=== PATIENT | female | born 1970 | race Caucasian/White ===

== ENCOUNTER 2024-01-14 16:42 | Emergency (ER) | payer SELFPAY ==
[2024-01-14 16:45] VITALS: BP 108/81
--- NOTE | 2024-01-14 17:13 | ED.GENMED ---
History of Present Illness
General
Chief Complaint: Blood Pressure Problem
Source: patient
Exam Limitations: none
Time Seen by Provider: 01/14/24 16:50
Nursing documentation reviewed up to this point in time: agreed with
Travel History
Have you had any contact with someone who has COVID-19?: No
Do you have any symptoms of coronavirus? Fever > 100 degrees, chills, cough, shortness of breath, sore throat, loss of taste or smell, muscle aches, or headache?: No
History of Present Illness
History of Present Illness:
The patient is a 53-year-old female who arrives here with police for medical clearance for incarceration. Patient reports that she was concerned because her blood pressure was elevated at home. Patient also reports a mild headache but denies
vision changes, chest pain and shortness of breath. Patient appears comfortable and well. Blood pressure in the normal range in the ED
Past History
Past History
ED Past Medical History: HTN
ED Past Surgical History: Gynecological
Social History
Tobacco: Smoker
Alcohol: Occasional
Drug: None
Personal: Other
Living: other
Employment: Other
Family History
Family History: Other
Review of Systems
Review of Systems
Allergies reviewed?: Yes
All Other Systems: ROS reviewed and negative except as documented in HPI and ROS
Constitutional: Reports no symptoms
EENT: Reports no symptoms
Respiratory: Reports no symptoms
Cardiac: Reports no symptoms
ABD/GI: Reports no symptoms
: Reports no symptoms
Musculoskeletal: Reports no symptoms
Skin: Reports no symptoms
Neurological: Reports headache; Denies dizzy
Endocrine: Reports no symptoms
Hematologic/Lymphatic: Reports no symptoms
Psychiatric: Reports no symptoms
Phy Exam
Physical Exam
Physical Exam:
Physical Exam
General: no apparent distress, not acutely ill. Well and comfortable appearing
Neck: supple. no meningeal signs. normal psoterior pharynx
Heart: s1/s2 regular rate and rhythm, no murmur. equal radial pulses.
Lungs: no acute respiratory distress. clear bilaterally
Abdomen: normal bowel sounds. not tender. no CVAT
Neuro: alert and orientedx3. no focal neurological deficits. 5 out of 5 strength in all extremities. Cranial nerves equal and symmetric bilaterally. Extraocular muscles intact.
Skin: no rash
Psychiatric: well kept. interactive and cooperative
Extremities: no edema. no calf tenderness. negative homans. good distal pulses
Course
Orders/Labs/Results
Orders:
Orders
01/14/24 17:13
Acetaminophen [Tylenol] 1,000 mg PO NOW STA
Vital Signs
Initial and Last Documented VS:
Initial Vital Signs
Temp Pulse Resp BP Pulse Ox
98.2 F 62 18 108/81 100
01/14/24 16:45 01/14/24 16:45 01/14/24 16:45 01/14/24 16:45 01/14/24 16:45
Last Documented Vital Signs
Temp Pulse Resp BP Pulse Ox
98.2 F 62 18 108/81 100
01/14/24 16:45 01/14/24 16:45 01/14/24 16:45 01/14/24 16:45 01/14/24 16:45
MDM/Problems Addressed
Differential Diagnosis Includes:
Acute hypertension, hypertensive urgency, hypertensive emergency, tension headache
MDM/Problems Addressed:
Patient presents with reported high blood pressure at home and a mild headache
Chronic conditions affecting care: HTN
Acute Exacerbation and/or Progression of Chronic Illness: HTN
*Pulse Oximetry
Patient hypoxic: no
*EKG
Interpreted by ED Provider?: NA
*Ciaio Counter Molder Interpretation
Rate: Ciaio Counter Molder- N/A
*Critical Care Note
Total Time (30-74mins, 75-104mins- exclusive of procedures): Not Applicable
Data Reviewed
Source: patient
Patient Management
Escalation/DeEscalation of care consider admission/obs:
Patient appears very well and comfortable. She had normal blood pressure in the ED. She has minimal complaints other than a mild headache. She denies any chest pain or shortness of breath and her lungs are completely clear. She has no sign of
leg edema to suggest heart failure or renal failure. She is smiling and conversational. She has a normal neurological exam. Given her blood pressure and vital signs are normal and she looks so well and comfortable, I do not think we need to do
emergent blood work.
ED Attending Note
-
Portions of this chart may have been created with voice recognition software.� Occasional wrong word or��sound alike� substitutions may have occurred due to the inherent limitations of voice recognition software.
Discharge Plan
Departure
Patient Disposition: Home (Routine Discharge)
Date of Disposition: 01/14/24
Time of Disposition: 17:20
Patient with high blood pressure during this ER visit?: No
Condition: Good
Covid-19: Not Applicable
Discharge Problem:
Medical clearance for incarceration
Instructions: Headache, Adult ED
Activity Restrictions/Additional Instructions:
Patient is cleared for incarceration.
Patient has a normal blood pressure in the emergency department and looks well. Patient reports that she does have a history of high blood pressure and has been off her medications. Therefore, it is important that her blood pressure is checked
within 48 hours and at least once a week to monitor for any hypertension.
Interventions
Interventions:
*Risk Screen - Suicide Last Done: 01/14/24 16:45
*General Assessment Last Done: 01/14/24 16:45
*Neglect/Abuse Screening Last Done: 01/14/24 16:45
ED- Fall Risk Assessment Last Done: 01/14/24 17:53
*ED COVID-19 Vaccine History Last Done: 01/14/24 16:45
*Nursing Disposition Last Done: 01/14/24 17:53
ED- Cardiac Assessment Last Done: 01/14/24 17:52
ED- Neurological Assessment Last Done: 01/14/24 17:52
ED- Pulmonary Assessment Last Done: 01/14/24 17:52
Discharge Date and Time
Discharge Date/Time: 01/14/24 17:53
Print Language: GREEK
[2024-01-14] MEDS: TYLENOL 1000 MG PO (17:21)
== END 2024-01-14 17:53 | disposition home or self-care (01) ==
LOC: EMR 16:42
PROVIDERS: EMERGENCY PHYSICIAN Emergency Medicine
DX: Z02.89 Encounter for other administrative examinations (principal); R51.9 Headache, unspecified; I10 Essential (primary) hypertension; Z65.3 Problems related to other legal circumstances; F17.200 Nicotine dependence, unspecified, uncomplicated
CPT/HCPCS: 99283

== ENCOUNTER 2024-03-18 17:47 | Inpatient (IN) | payer OTHER, SELFPAY ==
[2024-03-18] VITALS (12 sets, daily range): BP systolic 108–161; BP diastolic 66–107; PULSE 82–103; BMI 23.4
[2024-03-18 11:55] LABS: % Basophils 0.8 % (0-2); % Eosinophils 0.7 % (0-6); % Immature Granulocytes 0.4 % (0-0.5); % Lymphocytes 13.2 % (20.5-51.1); % Monocytes 5.7 % (1.7-9.3); % Neutrophils 79.2 % (42.2-75.2); Absolute Basophils 0.1 10^3/uL (0-0.2); Absolute Eosinophils 0.1 10^3/uL (0-0.7); Absolute Monocytes 0.4 10^3/uL (0.1-0.6); Absolute Neutrophils 5.9 10^3/uL (1.4-6.5); Hematocrit 44.1 % (37.0-47.0); Hemoglobin 15.3 g/dL (12.0-16.0); Mean Corp Hgb Conc. 34.7 g/dL (33.0-37.0); Mean Corpuscular Hgb 30.8 pg (27.0-31.0); Mean Corpuscular Volume 88.7 fL (81.0-99.0); Mean Platelet Volume 10.9 fL (7.4-10.4); Nucleated Red Blood Cells % 0 %; Platelet Count 316 10^3/uL (130-400); Red Blood Cell Count 4.97 10^6/uL (4.20-5.40); Red Cell Dist. Width 13.2 % (11.5-14.5); White Blood Cell Count 7.5 10^3/uL (4.8-10.8)
--- NOTE | 2024-03-18 11:59 | ED.GENMED ---
History of Present Illness
General
Chief Complaint: Fainting/Passed Out
Source: patient
Exam Limitations: none
Time Seen by Provider: 03/18/24 11:37
Nursing documentation reviewed up to this point in time: agreed with
History of Present Illness
History of Present Illness:
Patient presents to ED from [facility] secondary to multiple episodes of syncope this morning. Patient states that she felt 'woozy', prior to passing out. Event lasted less than a minute. Patient states that she has been
in care home for the past 5 days. During that time, patient has felt 'weak', and has not been able to go to cafeteria to eat. Denies fever or chills. Denies headache. Denies blurred vision. No loss of sensation or weakness. Denies recent episodes
of nausea, vomiting, or diarrhea.
Past History
Past History
ED Past Medical History: HTN
ED Past Surgical History: Gynecological
Social History
Tobacco: Smoker
Alcohol: Occasional
Drug: None
Personal: Other
Living: other
Employment: Other
Family History
Family History: Other
Review of Systems
Review of Systems
Allergies reviewed?: Yes
All Other Systems: ROS reviewed and negative except as documented in HPI and ROS
Constitutional: Reports no symptoms
EENT: Reports no symptoms
Respiratory: Reports no symptoms
Cardiac: Reports syncope
ABD/GI: Reports no symptoms
: Reports no symptoms
Musculoskeletal: Reports no symptoms
Skin: Reports no symptoms
Neurological: Reports no symptoms
Phy Exam
Physical Exam
Physical Exam:
Physical Exam
General: no apparent distress, not acutely ill. afebrile
Head: nc/at. eomi
Neck: supple. no meningeal signs.
Heart: s1/s2 regular rate and rhythm, no murmur. equal radial pulses.
Lungs: no acute respiratory distress. clear bilaterally
Abdomen: normal bowel sounds. not tender.
Neuro: alert and oriented. no focal neurological deficits
Skin: no rash
Psychiatric: well kept. interactive and cooperative
Extremities: no edema. no calf tenderness.
Course
Orders/Labs/Results
Orders:
Orders
03/18/24 11:34
Electrocardiogram (*1) Urgent
Reason for Study: Chest Pain
Cardiac Monitoring- Treatment ONCE
EKG- Treatment ONCE
IV Insert/Care/Rem.- Treatment PRN
O2 Therapy [RESP] Urgent
Titrate/Wean O2 to maintain O2 sat greater than (%): 90
Special Instructions: Maintain sats >/=90%
Pulse Ox/spot Check [RESP] Urgent
Quantity: 1
Special Instructions: ON ROOM AIR
03/18/24 11:43
B-Hydroxybutyrate Urgent
Comment: ADD ON
Complete Blood Count/With Diff Urgent
Comprehensive Metabolic Panel Urgent
Glycohemoglobin (HgbA1c) Urgent
03/18/24 12:01
Add On- LAB Urgent
Tests Added?: TSH to reflex free T4, magnesium
03/18/24 12:16
Add On- LAB Urgent
Tests Added?: hemoglobin A1C, CPK
03/18/24 12:31
Add On- LAB Urgent
Tests Added?: Beta hydroxybutyrate
03/18/24 14:42
EKG [Electrocardiogram (*1)] Urgent
Reason for Study: Other
Other Reason for Exam: Rhythm change
03/18/24 14:43
EKG- Treatment ONCE
03/18/24 14:48
Troponin I Urgent
03/18/24 15:45
0.9% Sodium Chloride 1000 ml [Nss] 1,000 ml IV 100 mls/hr
03/18/24 16:47
CT Head W/o Iv Contrast Urgent
Comment:
Reason For Exam: syncope, meth use
03/18/24 17:04
Admit/Transfer Patient As Directed
Co-Sign Provider:
Level of Care: Inpatient admission
Assign to:: Telemetry
Physician / Group: Trever Garcia
Diagnosis: Syncope due to unknown etiology
Reason for Telemetry: Syncope
Date to Stop Telemetry: 03/20/24
Time to Stop Telemetry: 11:00
Reason for Hospitalization: Evaluate Syncope
Expected length of stay greater than two midnights?: Yes
ELOS- Estimated Length of Stay in days: 2
I certify the patient meets the requirements for IP care: Yes
Reason for Overnight Stay: Standard of Care
PRN Pain Medication Management As Directed
May give lesser potent ordered pain med per pt: Yes
preference::
Protocol:: Medication orders for pain may be administered in a
manner that supports deferring to patient preference
when the pt is:
- Requesting an ordered lesser potent pain medication.
Least to most potent pain medications are defined
as: acetaminophen < NSAID < tramadol < opioids
(morphine, oxycodone, hydromorphone).
- Requesting a lesser dose of the same medication IF
ORDERED.
- Requesting a less intrusive route of administration
if both routes are prescribed by the provider (PO <
IV).
03/18/24 18:00
Amlodipine [Norvasc] 5 mg PO DAILY
03/20/24 11:00
DC Protocol for Telemetry ONCE
Abnormal Lab Results
03/18/24
11:43
MPV 10.9 H fL
(7.4-10.4)
Absolute Lymphs (auto) 1.0 L 10^3/uL
(1.2-3.4)
Neutrophils % 79.2 H %
(42.2-75.2)
Lymphocytes % 13.2 L %
(20.5-51.1)
Sodium 129 L mmol/L
(135-145)
Chloride 96 L mmol/L
(98-107)
Carbon Dioxide 19 L mmol/L
(22-30)
BUN 34 H mg/dl
(7-17)
Creatinine 1.2 H mg/dL
(0.6-1.0)
Glucose 257 H mg/dl
(70-99)
B-Hydroxybutyrate 2.32 H mmol/L
(0.02-0.27)
03/18/24 11:43
03/18/24 11:43
Vital Signs
Initial and Last Documented VS:
Initial Vital Signs
Temp Pulse Resp BP Pulse Ox
97.6 F 73 17 153/93 99
03/18/24 11:33 03/18/24 11:33 03/18/24 11:33 03/18/24 11:33 03/18/24 11:33
Last Documented Vital Signs
Temp Pulse Resp BP Pulse Ox
97.6 F 80 20 137/86 97
03/18/24 11:33 03/18/24 18:17 03/18/24 18:17 03/18/24 18:17 03/18/24 16:45
MDM/Problems Addressed
MDM/Problems Addressed:
Patient with multiple syncopal episodes, likely secondary to vasovagal response from lack of oral intake. However, in light of hyponatremia along with hyperglycemia, as well as abnormal EKG, patient will be admitted for further evaluation and
treatment.
*Critical Care Note
Total Time (30-74mins, 75-104mins- exclusive of procedures): Not Applicable
ED Attending Note
-
Portions of this chart may have been created with voice recognition software.� Occasional wrong word or��sound alike� substitutions may have occurred due to the inherent limitations of voice recognition software.
Discharge Plan
Departure
Patient Disposition: Admit
Date of Disposition: 03/18/24
Time of Disposition: 15:38
Admit to: Telemetry
Presentation/result/management discussed w/ accepting MD/DO: Hospitalist
Discharge Problem:
Syncope, Hyponatremia, Dehydration, Abnormal EKG
Interventions
Interventions:
*General Assessment Last Done: 03/18/24 11:31
ED- Fall Risk Assessment Last Done: 03/18/24 11:36
*ED COVID-19 Vaccine History Last Done: 03/18/24 11:31
ED- Cardiac Assessment Last Done: 03/18/24 11:36
ED- Neurological Assessment Last Done: 03/18/24 11:36
[2024-03-18 12:12] LABS: ALT (SGPT) 13 U/L (0-35); AST (SGOT) 30 U/L (14-36); Albumin 4.3 g/dl (3.5-5.0); Alkaline Phosphatase 81 U/L (38-126); Blood Urea Nitrogen 34 mg/dl (7-17); Calcium 9.7 mg/dl (8.4-10.2); Carbon Dioxide 19 mmol/L (22-30); Chloride 96 mmol/L (98-107); Glucose 257 mg/dl (70-99); Potassium 4.2 mmol/L (3.5-5.1); Sodium 129 mmol/L (135-145); Total Bilirubin 1.3 mg/dl (0.2-1.3); Total Protein 7.2 g/dl (6.3-8.2); eGFR 53.46
[2024-03-18 13:22] LABS: Glycohemoglobin (HgbA1c) 5.3 % (4.0-5.6)
[2024-03-18 13:44] LABS: B-Hydroxybutyrate 2.32 mmol/L (0.02-0.27)
[2024-03-18 15:20] LABS: Troponin I 0.034 ng/ml
[2024-03-18] MEDS: NSS 1000 IV (16:21)
--- NOTE | 2024-03-18 17:22 | HPS.HSE ---
Family Physician
-
Family Physician: [facility]
Chief Complaint
-
Syncope of unknown etiology
History of Present Illness
53 year old female with PMHx significant for HTN presents to the ED from [facility] complaining of multiple episodes of syncope in the a.m. today. Patient was sitting in a chair and doing her work-not exertional activity,
when she had the syncopal episode. She does not recall anything of the syncopal episode except for feeling little very and lightheaded before having the episode. Her episode was witnessed by regulatory compliance officer who states that she was profusely
sweating during the episode and nonresponsive. The episode lasted for less than a minute, and during the episode, patient did not have any bowel or bladder incontinence, no shaking or eye rolling or tongue biting, and no postictal phase.
Patient has been experiencing heart palpitations over few months that she describes as heart racing and pounding with each episode lasting for about 20 minutes, specifically having 2 episodes in the last 5 days. Patient has been feeling lightheaded
over the last 5 days since the beginning of her incarceration, but attributes it to not eating food in the senior living. She reports having some shortness of breath but attributes it to her strenuous physical activity. She also reports to have nausea
(most episodes associated with meth and marijuana).
However she denies having headaches, blurry vision, numbness, weakness, chest pain, vomiting, bowel movement changes, abdominal pain, fever, chills. Denies having similar episodes of syncope in the past.
Of note patient has been taking methamphetamines and marijuana for long time and is dependent, previously incarcerated for the same released about 7 days ago and was incarcerated again as she was found to be driving under influence of meth on Sunday
this month.
Medical History
Past Medical History
Past Medical History: Reports HTN (Does not take any medication)
Past Surgical History: Reports and Gynocological (Double Mastectomy following Breast Cancer Diagnosis)
Social History
Tobacco: Smoker (10 cigarettes a day for the past year)
Alcohol: None
Drug: Marijuana and Other (Methamphetamine)
Living: With Family
Employment: Not Employed
Family History
Family History: Cancer, Diabetes and Hypertension
Allergies / Home Medications
Allergies reflects when Allergies were last updated in [facility].
Home Medications with original date entered in [facility]
Allergy/Medication List:
No known allergies
Not taking medications for her conditions
Review of Systems
-
History Source: Patient
A 12 point ROS was completed and negative except as noted: Yes
Constitutional: Reports See HPI
Respiratory: Denies Cough or Trouble Breathing
Cardiac: Reports See HPI
Neurological: Reports See HPI
Physical Exam
Vital Signs
Vital Signs
Temp Pulse Resp BP Pulse Ox
97.6 F 87 20 147/99 98
03/18/24 11:33 03/18/24 16:20 03/18/24 16:20 03/18/24 15:00 03/18/24 16:20
Physical Exam
General: Well Developed, Well Nourished, No Apparent Distress, Comfortable and Conversant
Respiratory: Clear and Non Labored Respirations
Cardiac: S1/S2 and Regular Rhythm
Musculoskeletal: Edema, Left Upper Extremity (Mild edema noted)
Skin: Warm and Dry
Neuro: Awake, Alert, Oriented, AO x 3 and No Motor Deficits
Psych: Calm
Laboratory Results
-
03/18/24 11:43
03/18/24 11:43
Laboratory Results
Total Bilirubin 1.3 mg/dl (0.2-1.3) 03/18/24 11:43
AST 30 U/L (14-36) 03/18/24 11:43
ALT 13 U/L (0-35) 03/18/24 11:43
Alkaline Phosphatase 81 U/L (38-126) 03/18/24 11:43
Troponin I 0.034 ng/ml 03/18/24 14:48
Data Reviewed
-
CT Scan: Report Reviewed by me, Discussed with Physician and Discussed with Patient
Medical Tests (Nuc Med, Echo, EKG etc): Report Reviewed by me, Discussed with Physician and Discussed with Patient
Lab Data: Labs Reviewed by me, Discussed with Physician and Discussed with Patient
Impression/Plan
-
IMPRESSION:
53 year old patient with a history of untreated HTN, and drug use disorder presented to the ED with a recent episode of syncope. Patient is admitted for evaluation of syncope.
PLAN:
Syncope
-due to unknown etiology- Admit for evaluation.
-suspect brain bleed in the setting of Meth use, obtain CT head - Questionable tiny old lacunar infarct in the left thalamus. No acute intracranial abnormality.
-Cardiac and vasovagal syncope possible, obtain orthostatic vitals BID
- discontinue orthostatic vitals if 2 readings value.
-Monitor on telemetry
- Echocardiogram in the am.
-Current EKG (No previous EKG for comparison)- ST and T wave abnormalities seen in inferior and anterolateral leads
Elevated troponin -
upon admission - 0.034,
-Current EKG (No previous EKG for comparison)- ST and T wave abnormalities seen in inferior and anterolateral leads
Trend troponin to witness plateau and down.
suspect non ischemic myocardial injury, pending echo
Will consult cards based on echo findings.
Hypertension
-Patient started on 5mg Amlodipine
-History of untreated HTN
-Check Lipids
Questionable Impaired fasting glucose tolerance.
-Elevated Glucose (257) reading, no prior baseline.
-no h/o DM
-HbA1c (5.3) on 03/18.
-Accuchecks AC, if elevated , may need close outpatient monitoring and evaluation.
CARLOS -
Likely secondary to dehydration.
Trend renal levels to check for renal function
B-Hydroxybutyrate Elevation
-Suspect starvation related elevated ketones
-Unclear if patient has undiagnosed diabetes
-HbA1c 5.3 -> unlikely diabetic ketoacidosis
-maintenance IVF
Hyponatremia-
-likely hypovolemic hyponatremia secondary to dehydration
-maintenance IVF
Substance use disorder
- Meth and marijuana use disorder. - oral drug use, denies IV drug use, and no evidence for IV drug use on physical exam.
- Incarcerated in the past for same, most recent incarceration - 5 days ago.
-Obtain urine toxic drug screen
DVT Prophylaxis- 40mg Lovenox
Code- Limited DNR, No Mechanical Ventilation
--- NOTE | 2024-03-18 17:57 | W.PN.UPDATE ---
Update Note
Progress Note Update
I personally performed a history and physical exam of the patient and discussed management with the resident. I reviewed the resident's note and agree with the documented findings and plan of care HPI/CC.
Patient is a 53F with PMH of HTN, non IV substance use, depression/anxiety, tobacco use was brought to ER from correction facility after noted to have new syncope. This was witnessed with some reported diaphoersis. no nausea/chest pain. piotr
previous episode of similiar problems. For last 5 days have beeing feeling dizzy. Poor apetiite. Associated with palpitation, which is not exertional. palpitation was not preceding to syncope episode today
Have been using meth, not IV use. Denies h/o of endocarditis/heart valvular issues.
HEENT: No pallor, cyanosis, or jaundice. Throat clear.
NECK: Supple. No JVD.
RESPIRATORY: Lungs clear to auscultation.
CVS: S1, S2 normal. Regular rate rhythm. no murmur
ABDOMEN: Soft, non-tender. No distension. BS+/normal.
EXTREMITIES: No peripheral cyanosis or edema.
OFFICE RN: AOx3. No focal deficits.
Syncope
-suspected vasovagal vs cardiac arrhythmia related
-CT head showing old lacunar infarcts
-check orthostatic vitals
-EKG showing some T wave inversion in septal leads, no previous EKG to compare with. Trop neg. f/u x2 set
-check echocardiogram
-monitor on tele overnight
-Ideally would require ambulatory rhythm monitoring but currently in correctional facility and will not be feasible. Also patient not interested in taking medication or seeing physician before incarcerated.
Hyponatremia
- from HCTZ use. hold and monitor
-getting NS
CARLOS vs CKD
-no previous labs to compare with
-assume component of CARLOS, provide IVF for now
-Check UA - r/o proteinuria, suggestive of CKD
-f/u cr level
Metabolic acidosis
-possible starvation ketoacidosis related.
-oral bicarb x2 doses
Hyperglycemia
-not diabetic, a1c of 5.7
-reason unclear, did not get D5 in ER
-maintain on ISS for now
DVT PPX - scd
Full code
Total time spent : 80 mins
[2024-03-18] MEDS: NORVASC 5 MG PO (20:04)
[2024-03-18 20:26] LABS: Glucose - Point of Care 204 mg/dl (70-99)
[2024-03-18 20:34] LABS: Troponin I 0.033 ng/ml
[2024-03-18] MEDS: LOVENOX 40 MG SC (20:48)
[2024-03-18] MEDS: APRESOLINE 10 MG IV (22:26)
[2024-03-19] MEDS: ZOFRAN 4 MG IV (00:03)
--- NOTE | 2024-03-19 00:29 | PTCARENOTE ---
Pt admitted to the unit from ED with IV fluids infusing. Pt ambulated with nursing staff and correctional officers to bed. AAXO3. VS: Temp 97.6, Pulse 95, Resp rate 20, BP 106/104, and O2 96 on RA. BP medication administered, see OCT. Updating home
medication list, pt reports 'I don't take any home meds.' Pt oriented to room with call kamara in reach. Plan of care ongoing.
~22:08 recheck BP 161/104. PRN Hydralazine administered. Plan of care ongoing.
~23:54 Pt reported nausea. No vomiting. Pt's forehead felt cool to touch. No sweating noted on assessment. VS: Temp 97.2, Pulse 74, Resp rate 22, BP 108/66, O2 97 on RA. AAXO3. Notified CARRIE Hart. New orders placed. Plan of care ongoing.
Pt reports nausea resolved. Plan of care ongoing.
[2024-03-19 02:32] VITALS: BP 184/94
[2024-03-19] MEDS: APRESOLINE 10 MG IV (02:36)
[2024-03-19 03:09] LABS: Amphetamines Positive (Negative); Barbiturates Negative (Negative); Benzodiazepines Negative (Negative); Buprenorphine Negative (Negative); Cocaine Negative (Negative); Marijuana Positive (Negative); Methadone Negative (Negative); Methamphetamines Negative (Negative); Opiates Negative (Negative)
[2024-03-19 03:10] LABS: Phencyclidine Negative (Negative); Tricyclic Antidepressants Negative (Negative)
[2024-03-19 03:24] LABS: Fentanyl, Urine Negative (Negative)
[2024-03-19 04:35] VITALS: BP 132/72
[2024-03-19] MEDS: NSS 1000 IV (06:14)
[2024-03-19 08:51] LABS: Glucose - Point of Care 95 mg/dl (70-99)
[2024-03-19] MEDS: NORVASC 5 MG PO (09:04)
[2024-03-19 09:10] VITALS: BP 146/85
[2024-03-19 10:20] LABS: % Basophils 0.6 % (0-2); % Eosinophils 1.6 % (0-6); % Immature Granulocytes 0.1 % (0-0.5); % Lymphocytes 25.8 % (20.5-51.1); % Monocytes 11.3 % (1.7-9.3); % Neutrophils 60.6 % (42.2-75.2); Absolute Eosinophils 0.1 10^3/uL (0-0.7); Absolute Lymphocytes 1.8 10^3/uL (1.2-3.4); Absolute Monocytes 0.8 10^3/uL (0.1-0.6); Absolute Neutrophils 4.2 10^3/uL (1.4-6.5); Hematocrit 42.1 % (37.0-47.0); Hemoglobin 14.9 g/dL (12.0-16.0); Mean Corp Hgb Conc. 35.4 g/dL (33.0-37.0); Mean Corpuscular Hgb 30.8 pg (27.0-31.0); Mean Corpuscular Volume 87.2 fL (81.0-99.0); Nucleated Red Blood Cells % 0 %; Platelet Count 353 10^3/uL (130-400); Red Blood Cell Count 4.83 10^6/uL (4.20-5.40); Red Cell Dist. Width 13.3 % (11.5-14.5)
[2024-03-19 11:22] LABS: ALT (SGPT) 12 U/L (0-35); AST (SGOT) 25 U/L (14-36); Albumin 4.2 g/dl (3.5-5.0); Alkaline Phosphatase 72 U/L (38-126); Blood Urea Nitrogen 19 mg/dl (7-17); Calcium 10.3 mg/dl (8.4-10.2); Carbon Dioxide 26 mmol/L (22-30); Chloride 101 mmol/L (98-107); Estimated Creatinine Clearance 66 ml/min; Glucose 102 mg/dl (70-99); HDL Cholesterol 60 mg/dl; LDL Cholesterol, Calculated 133 mg/dl; Sodium 137 mmol/L (135-145); Total Bilirubin 0.8 mg/dl (0.2-1.3); Total Cholesterol 212 mg/dl (50-199); Total Protein 6.9 g/dl (6.3-8.2); Triglyceride 96 mg/dl (10-149); Very Low Density Lipoprotein 19 mg/dl (0-30); eGFR > 60.00
[2024-03-19 11:46] LABS: Potassium 3.8 mmol/L (3.5-5.1)
[2024-03-19 11:50] VITALS: BP 130/80; BP 148/79; BP 155/81; PULSE 106; PULSE 90; PULSE 96
[2024-03-19 11:52] LABS: Glucose - Point of Care 174 mg/dl (70-99)
[2024-03-19 12:50] VITALS: BP 148/79
--- NOTE | 2024-03-19 13:24 | CM ---
Patient from [facility]. Plan return.
Plan: back to [facility]
Spoke with Melly from the [facility], they have spironolactone in stock.
Please call report to Melly
[facility]
Report# [phone]
--- NOTE | 2024-03-19 13:52 | W.PN.HOSP.TC ---
Addendum entered and electronically signed by Trever Garcia MD 03/19/24 17:06:
I saw and evaluated the patient. I reviewed the resident�s note and agree with findings and plan as documented in the resident�s note.
No further episodes of syncope. Feels dizzy at time
Syncope
-Orthostatic vitals positive although standing systolic blood pressure in 120s. Did patient have further lower blood pressure explaining syncope?
-CT head showing old lacunar infarcts
-TTE showed preserved EF, no valvulopathy
-EKG showing some T wave inversion in septal leads, no previous EKG to compare with. Trop neg x2 set
-No event on telemetry overnight
-Ideally would require ambulatory rhythm monitoring but currently in correctional facility and will not be feasible. Also patient not interested in taking medication or seeing physician in general. Nonetheless I recommended patient to follow-up
with cardiology once out of correctional facility. Patient would benefit with ambulatory rhythm monitoring.
Hyponatremia - resolved
-discontinue at discharge
Essential HTN
-starting on aldactone for BP control
-avoiding BB with drug use (although its meth)
-no vasodilators as have orthostasis
CARLOS -resolved
-no previous labs to compare with
-assume component of CARLOS, provide IVF for now
-Check UA - r/o proteinuria, suggestive of CKD
-f/u cr level
Metabolic acidosis
-resolved.
Hyperglycemia
-not diabetic, a1c of 5.7
-reason unclear, did not get D5 in ER
DVT PPX - lovenox
Full code
Original Note:
Today's Communication/Plan
-
Patient to be discharged home today with new medications for hypertension.
Assessment / Plan
Assessment / Plan
53 year old patient with a history of untreated HTN, and drug use disorder presented to the ED with a recent episode of syncope. Patient was admitted for evaluation of syncope.
PLAN:
Syncope
- suspect brain bleed in the setting of Meth use, obtain CT head - Questionable tiny old lacunar infarct in the left thalamus. No acute intracranial abnormality.
- Cardiac and vasovagal syncope possible, obtain orthostatic vitals BID
- orthostatic vitals- Supine- 161/104, Sitting 150/99, Standing 125/94
- possibly due to severe volume depletion, repeat orthostatic vitals
- Monitor on telemetry- No events observed on telemetry overnight, Sinus Rhythm
- Checked echo for potential cardiac relation to syncope
- Echocardiogram- Left ventricular ejection fraction is 65-70%, by visual assessment. Normal regional wall motion. Normal right ventricular size and function. No significant valvular disease.
- Current EKG (No previous EKG for comparison)- ST and T wave abnormalities seen in inferior and anterolateral leads
Elevated troponin -
-Current EKG (No previous EKG for comparison)- ST and T wave abnormalities seen in inferior and anterolateral leads
suspect non ischemic myocardial injury
Upon admission - 0.034, trending down 0.033 -> 0.020
Hypertension
-Patient started on 5mg Amlodipine
-History of untreated HTN
-Patient given Hydralazine 10mg IV Q4HPRN For Sbp > 160 Or Dbp > 110
-Lipids checked, in line (LDL 133, HDL 60, Triglycerides 96)
-Patient prescribed Spironolactone 25mg PO daily
Questionable Impaired fasting glucose tolerance.
-Elevated Glucose (257) reading, no prior baseline.
-no h/o DM
-HbA1c (5.3) on 03/18.
-Glucose levels in range
CARLOS -
Likely secondary to dehydration.
Trend renal levels to check for renal function
-resolved, creatinine now 0.9 from 1.2
B-Hydroxybutyrate Elevation
-Suspect starvation related elevated ketones
-Unclear if patient has undiagnosed diabetes
-HbA1c 5.3 -> unlikely diabetic ketoacidosis
-maintenance IVF
-resolved
Hyponatremia-
-Possibly from HCTZ use but patient denies any current medication use
-maintenance IVF
-resolved, 137 most recent reading
-Possibly hypovolemic hyponatremia from starvation/dehydration
Substance use disorder
- Meth and marijuana use disorder. - oral drug use, denies IV drug use, and no evidence for IV drug use on physical exam.
- Incarcerated in the past for same, most recent incarceration - 5 days ago.
- Urine drug screen positive for Meth and Marijuana
DVT Prophylaxis- 40mg Lovenox
Code- Limited DNR, No Mechanical Ventilation
Anticipated Discharge: Today
Subjective/Interval History
-
Date of Service: March 19, 2024
Patient was feeling well this morning, said she had an episode of nausea during the night which resolved after medication. Patient also complained of a headache this morning.
Objective Data
-
Labs:
Laboratory Results
03/19/24
09:52
WBC 7.0
Hgb 14.9
Hct 42.1
Plt Count 353
Sodium 137 D
Potassium 3.8
Chloride 101
Carbon Dioxide 26
BUN 19 H
Creatinine 0.9
Glucose 102 H
Calcium 10.3 H
Total Bilirubin 0.8
AST 25
ALT 12
Alkaline Phosphatase 72
Vital Signs:
Vital Signs
Temp Pulse Resp BP Pulse Ox
97.9 F 96 24 148/79 98
03/19/24 11:50 03/19/24 11:50 03/19/24 11:50 03/19/24 11:50 03/19/24 11:50
I&O
03/18/24 03/19/24 03/20/24
06:59 06:59 06:59
Intake Total 120 / 120
Balance 120 / 120
Review of Systems
-
History Source: Patient
Respiratory: Denies Cough, Trouble Breathing or Wheezing
Cardiac: Denies Chest Pain, Diaphoresis, Palpitations or Syncope
Abdomen/GI: Reports Nausea; Denies Vomiting, Diarrhea or Constipated
Neuro: Reports Headache; Denies Dizzy
Physical Exam
-
General: Well Developed, Well Nourished, No Apparent Distress and Comfortable
Respiratory: Clear to Auscultation and Non Labored Respirations
Cardiac: Regular Rhythm and S1/S2
Musculoskeletal: No Clubbing, No Cyanosis and No Edema
Neuro: Awake, Alert, Oriented, AO x 3, No Motor Deficits and No Sensory Deficits
Psych: Calm
Data Reviewed
-
Medical Tests (Nuc Med, Echo etc): Report Reviewed by me, Discussed with Physician and Discussed with Patient
Labs: Labs Reviewed by me, Discussed with Physician and Discussed with Patient
--- NOTE | 2024-03-19 14:42 | W.DCSUMMARY ---
Discharge Summary
Discharge Data
Date of Admission: 03/18/24
Date of Discharge: 03/19/24
-
Pending Results: No
Hospital Course
53 year old female with past medical history of hypertension presents to the emergency department with multiple episodes of syncope in the a.m. on 03/18. Patient had been sitting in a chair doing her work at the [facility] facility
when she had the syncopal episode. Patient does not recall anything about the episode except feeling a little lightheaded. This episode was witnessed by a commercial account officer who stateed that the patient was profusely sweating during the episode
and unresponsive. That episode lasted for less than a minute and during the episode patient did not have any bowel or bladder incontinence shaking of the eye or eye rolling or tongue biting and no postictal phase.
Patient was admitted to the hospital due to patient's long drug use history and previous history of unmanaged hypertension. Patient underwent an EKG in the emergency department which showed ST and T wave abnormalities in the inferior and
anterolateral leads. Patient also had elevated troponins alongside elevated beta hydroxybutyrate levels and acute kidney injury likely secondary to dehydration. Orthostatic vitals were taken of the patient and she was placed on telemetry and got a
echocardiogram in the a.m. Patient was also started on amlodipine 5 mg as well as given IV fluids to help with her dehydration. Beta hydroxybutyrate elevation was suspected to be due to her starvation as she had not been eating at the correctional
facility. Patient also had hypovolemic hyponatremia secondary to dehydration which was also treated using IV fluids.
Patient's troponin levels were trended and they decrease steadily throughout the day. Patient telemetry did not show any adverse events throughout the night and her echocardiogram in the morning showed no adverse changes in her heart. Patient's
creatinine levels returned to 0.9 and her glucose levels became and ranges as well. Patient's hyponatremia also resolved with 137 being the most recent reading. Orthostatic vital signs showed supine 161/104, sitting 150/99, standing 125/94.
Possibly due to severe volume depletion. Patient also tested positive for substances in her urine including meth and marijuana.
Patient was discharged from the hospital with new prescription of spironolactone 25 mg p.o. daily to help control her high blood pressure. Patient given instructions to go see parliamentary archivist after leaving the correctional facility.
Discharge Plan
-
Patient Disposition: Other
Discharge Diagnosis/Procedures: Syncope
Condition: Fair
Diet: As tolerated
Activity: No restrictions
Driving Restrictions: As prior to admission
Bathing Restrictions: None
Activity Restrictions/Additional Instructions:
Wear compression stockings during the day, follow up with cardiology on outpatient basis when able
Instructions: Syncope (Fainting) (DC), Dizziness, Nonvertigo, (DC), BLOOD PRESSURE
Referrals:
[facility] [Family Provider] -
Prescriptions:
New
spironolactone 25 mg Tablet
25 mg PO DAILY 30 Days Qty: 30 2RF
Discontinued
quetiapine 25 mg Tablet
25 mg PO DAILY
clonazepam 0.5 mg Tablet
0.5 mg PO .TAPER
Patient Comments:
03/18/2024: Taper Directions: 0.5mg BID from 03/17 to 03/19, 0.5mg HS from 03/20 to 03/22
diphenhydramine HCl 25 mg Capsule
25 mg PO BID
hydrochlorothiazide 25 mg Tablet
25 mg PO DAILY
quetiapine 50 mg Tablet
50 mg PO HS
Discharge Orders:
Discharge Patient (As Directed); Ordered 03/19/24
Ordered By: Cruz Deleon
Discharge Date and Time
Print Language: UKRAINIAN
[2024-03-19 15:43] VITALS: BP 147/93
== END 2024-03-19 15:52 | DRG 641 ==
LOC: 4 WEST ACU 17:47
PROVIDERS: ADMITTING PHYSICIAN Hospitalist; EMERGENCY PHYSICIAN Emergency Medicine
DX: E86.0 Dehydration (principal); N17.9 Acute kidney failure, unspecified; F15.20 Other stimulant dependence, uncomplicated; E87.1 Hypo-osmolality and hyponatremia; I10 Essential (primary) hypertension; F12.20 Cannabis dependence, uncomplicated; R55 Syncope and collapse; F17.210 Nicotine dependence, cigarettes, uncomplicated; R79.89 Other specified abnormal findings of blood chemistry; Z66 Do not resuscitate; E86.1 Hypovolemia; T73.0XXA Starvation, initial encounter; R94.31 Abnormal electrocardiogram [ECG] [EKG]; R73.9 Hyperglycemia, unspecified; Z90.13 Acquired absence of bilateral breasts and nipples; Z85.3 Personal history of malignant neoplasm of breast; Z86.73 Personal history of transient ischemic attack (TIA), and cerebral infarction without residual deficits
CPT/HCPCS: 70450; 80053; 80061; 80306; 80307; 82010; 82962; 83036; 84484; 85025; 87070; 87147; 93005; 93306; 99285